=== PATIENT | female | born 1945 | race Caucasian/White ===

== ENCOUNTER → 2017-05-14 | Outpatient (CLI) | payer OTHER ==
[~2017-05-14] VITALS: Ht 152.4 cm; Wt 56.2 kg
[~2017-05-14] MED LIST: CALCIUM 500 +1 EAC5 PO; FISH OIL 1,001000 M2 PO; FOSAMAX 70 MG T70 MG PO; GLUCOSAMINE1000 MG PO; THERA TEARS1 EACH OPHTHALMIC
--- NOTE | ~2017-05-14 | S ---
[facility] Jaya Hawkins [place] [address] SURGICAL PATH RPT PROCEDURE Name: PABLITO SANTIZO Room #: REG [facility] Darlene.#: [id number] Admission: 05/14/17 Date of : 45 Discharge: Report #: [id number] Path Case #: [id number] PATHOLOGY REPORT COLLECTION DATE: 05/14/2017 RECEIVED DATE: 05/14/2017 SUBMITTING PHYS: Dr. Niraj Gan OTHER PHYS: Dr. Robinson Brewster SPECIMEN(S) RECEIVED: A.Proximal transverse colon polyp B.Polyp at 50 cm * * * * * * * * * * * * FINAL DIAGNOSIS: A. "Proximal transverse colon polyp", biopsy: - Tubular adenoma; no high grade dysplasia. B. "Polyp at 50 cm", biopsy: - Tubular adenoma; no high grade dysplasia. (CLW:rosemarie; 05/16/2017) PATHOLOGIST: Yin Mclaughlin M.D. REPORT ELECTRONICALLY SIGNED BY: Yin Mclaughlin M.D. DATE/TIME: 05/16/2017 15:10 * * * * * * * * * * * * GROSS PATHOLOGY: A. Received in formalin labeled "Pablito Santizo, polyp at proximal transverse colon," are 2 segments of chacon soft tissue measuring 1.0 x 0.5 x 0.4 cm in aggregate dimensions and ranging from 0.2 to 0.8 cm in maximum dimension. The specimen is submitted entirely in cassette A1. B. Received in formalin labeled "Do, Pablito N, polyp at 50 cm," is a segment of chacon soft tissue measuring 0.9 x 0.3 x 0.2 cm in maximum dimension. The specimen is submitted entirely in cassette B1. (LARRY; 05/15/2017) CLINICAL HISTORY: Screening, diverticulosis/colon polyps INITIAL CPT CODE(S): A; 64140 B; 81203 [facility] by [facility] at [address] [address] SURGICAL PATH RPT PROCEDURE Name: PABLITO SANTIZO Ugo Room #: REG MARIA D Danielle#: [id number] Admission: 05/14/17 Date of : 45 Discharge: Report #: [id number] Path Case #: [id number] , [place] [address] Technical services performed by [facility] at [address] [place] [address], [facility] [address] [address]. [facility] [address] [place] [address] PHONE: [phone] DIRECTOR: Vance Garcia M.D. * * * END OF REPORT * * *
--- NOTE | ~2017-05-14 | P ---
[facility] [place] [address] PROCEDURE REPORT Name: PABLITO MIRAMONTES Room #: REG [facility]#: [id number] Admission: 05/14/17 Attend Phys: Niraj Gan MD Discharge: Date of : 45 Report #: [id number] THIS REPORT FOR: //name// CC: Niraj STODDARD BOX Robinson Box BRIEF HISTORY: The patient is a 72-year-old woman for average risk screening colonoscopy. PREOPERATIVE DIAGNOSIS: Average risk screening colonoscopy. POSTOPERATIVE DIAGNOSES: 1. Colon polyps. 2. Diverticulosis coli, right colon and left colon. MEDICATIONS: Deep sedation with propofol per anesthesia. SPECIMEN: 1. Polyp from proximal transverse colon. 2. Flat polyp from 50 cm. ESTIMATED BLOOD LOSS: 3 mL. PROCEDURE: Colonoscopy to cecum and terminal ileum with snare polypectomy. FINDINGS: Prior to propofol sedation, procedure of colonoscopy discussed with the patient as well as potential risks and its complications. She indicates she understands and desires to proceed. DESCRIPTION OF PROCEDURE: With the patient in left lateral decubitus position, digital examination was completed which revealed no abnormalities. Subsequently, the Lumaqco video colonoscope was introduced into the rectum and advanced under direct vision to the cecum. It was done with minimal difficulty. The cecum was identified by the ileocecal valve and the appendiceal orifice. At that point, the scope was slowly withdrawn and careful circumferential views obtained. Overall, the prep was good. The mucosa was within normal limits, normal vascular pattern, normal light reflex. As we withdrew the scope, she was found to have a 5 mm sessile polyp in the proximal transverse colon, which was removed by cold snare polypectomy. In addition, she was noted to have a number of moderate diverticula scattered throughout the ascending colon. As we withdrew the scope further, no additional abnormalities were noted until left colon was reached and at 50 cm, a flat 5 mm polyp was seen and removed by cold snare polypectomy and recovered. Scope was further withdrawn and there was moderate sigmoid diverticular disease without endoscopic evidence of diverticulitis. Scope was withdrawn into the rectum and upon retroflexion, no abnormalities were seen. Scope was withdrawn. The patient tolerated the [facility] [address] [place] [address] PROCEDURE REPORT Name: PABLITO MIRAMONTES Ugo [facility] [id number] Admission: 05/14/17 Attend Phys: Niraj Gan MD Discharge: Date of : 45 Report #: [id number] procedure well. CONDITION OF THE PATIENT UPON DISCHARGE: Following procedure, the patient drowsy, arousable, and conversant and will be discharged home when fully ambulatory. INSTRUCTIONS TO THE PATIENT AND FAMILY AT THE TIME OF DISCHARGE: Two ____ polyps identified and removed as described above. We will follow up on the path report and make further recommendations. If one or both of these polyps are adenomas, she should return in 5 years; if neither one is an adenoma, then 10 years would be indicated. Last colonoscopy was 9-1/2 years ago. Withdrawal time from the cecum was 13 minutes and 29 seconds. <ELECTRONICALLY SIGNED> By: Niraj Gan MD 05/14/17 1742 0932 1022 Niraj Gan MD /nt
--- NOTE | ~2017-05-14 | EKG ---
[address] [address] ELECTROCARDIOGRAM REPORT Name: PABLITO MIRAMONTES Ugo Room #: REG 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 No previous ECG available for comparison Electronically Signed On 05-14-2017 11:09:37 CDT by Jose Olmedo [email or web address] <ELECTRONICALLY SIGNED> By: Jose Olmedo MD 05/14/17 1109 0958 0958 Jose Olmedo MD /JAMIE
== END | disposition home or self-care (01) ==
LOC: GI 07:32
DX: Z12.11 Encounter for screening for malignant neoplasm of colon (principal); K63.5 Polyp of colon; K57.30 Diverticulosis of large intestine without perforation or abscess without bleeding; H40.9 Unspecified glaucoma; Z98.41 Cataract extraction status, right eye; Z98.42 Cataract extraction status, left eye
CPT/HCPCS: 62110; 62900

== ENCOUNTER 2017-11-09 21:19 | Inpatient (IN) | payer OTHER ==
[~2017-11-09] VITALS: Ht 152.4 cm; Wt 62.2 kg
--- NOTE | ~2017-11-09 | EKG ---
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
--- NOTE | ~2017-11-09 | P ---
[facility] [place] [address] PROCEDURE REPORT Name: PABLITO MIRAMONTES Ugo Room #: 207-P [facility] IN M.R.#: [id number] Admission: 11/09/17 Attend Phys: Timothy Yadav DO Discharge: 11/11/17 Date of : 45 Report #: [id number] THIS REPORT FOR: //name// CC: Timothy [facility] Robinson Box DATE OF SERVICE: 11/10/2017 PREOPERATIVE DIAGNOSIS: Sick sinus syndrome and sinus arrest. POSTOPERATIVE DIAGNOSIS: Sick sinus syndrome and sinus arrest. PROCEDURE: Pacemaker insertion. HISTORY: The patient is a 72-year-old female who presented with presyncopal and syncopal episodes and was found to have frequent episodes of sinus arrest as well as premature atrial contractions with compensatory pauses from durations of 3-10 seconds. This improved with isoproterenol overnight. She is on no AV marcelo blocking agents. She had an echocardiogram showing EF of 60-65%. She is here for dual-chamber pacemaker implantation. ANESTHESIA: The patient underwent MAC anesthesia with no anesthesia-related complications. DESCRIPTION OF PROCEDURE: The patient underwent informed consent. We discussed the details of the procedure including the risks, which include, but not limited to bleeding, infection, vascular damage, cardiac perforation and pneumothorax. She understood these risks and was willing to proceed. As such, she was brought to the EP laboratory in a fasting and sedated state and prepped and draped in a sterile fashion. She received IV vancomycin and underwent a venogram showing patency of the left axillary vein. Next, I injected lidocaine at the prior incision site. An incision was made. A pocket was created over the prepectoral fascia. Next, access was obtained twice the left axillary vein using the extrathoracic approach with sheaths positioned using the modified Seldinger technique. Next, under fluoroscopy, a lead was positioned in the right ventricular apex with adequate pacing and sensing thresholds. The atrial lead was positioned into the right atrial appendage, but there was poor R-wave, so this was repositioned and the P waves were slightly improved at this site at 1 millivolt. The sheaths were split. I did have issues splitting the atrial sheath and therefore, I had to spend about 10 minutes trying to remove the sheath and I had to cut it with a Archbald scissor. The leads were tested and found to be functioning normally. The sheaths were sutured to the prepectoral fascia using Ethibond suture and then, the device was connected and tested and found to be functioning normally. The device was placed in the pocket and then, the pocket was irrigated with vancomycin and then I closed the pocket in [address] [address] PROCEDURE REPORT Name: PABLITO MIRAMONTES Room #: 207-P [facility] IN M.R.#: [id number] Admission: 11/09/17 Attend Phys: Timothy Yadav DO Discharge: 11/11/17 Date of : 45 Report #: [id number] using 2-0 for the deep layer, 3-0 for the mid layer and 4-0 for the subcuticular. Surgical glue was placed to the outer skin layer. The implanted pacemaker was a Biotronik model #468685, serial #[id number]. This was an MRI compatible device due to her prior need for MRIs. The atrial lead was a Biotronik model #457378, serial #[id number]. The atrial lead demonstrated a P-wave of 1 volt with a pacing impedance of 448 ohms and a pacing threshold of 0.8 volts at 0.4 milliseconds. The RV lead was a Biotronik model #089742, serial #[id number]. This demonstrated R-wave of 4 millivolts, pacing impedance of 604 ohms and a pacing threshold of 0.6 volts at 0.4 milliseconds. The device is programmed to the DDD 60-130 mode. CONCLUSIONS: 1. Successful pacemaker implantation. 2. Satisfactory atrial and right ventricular pacing and sensing thresholds. <ELECTRONICALLY SIGNED> By: Jose Olmedo MD 11/15/17 1141 1404 0519 Jose Olmedo MD /nt
--- NOTE | ~2017-11-09 | 2DMMODE ---
[facility] [address] [place] [address] 2 D/M-MODE ECHOCARDIOGRAM Name: PABLITO N Room #: 207-P [facility] IN [facility]#: [id number] Admission: 11/09/17 Attend Phys: Timothy Yadav, Discharge: Date of : 45 Date of Service: 11/11/17 1247 Report #: [id number] THIS REPORT FOR: //name// APPROVED REPORT Study performed: 11/10/2017 08:49:39 EXAM: Comprehensive 2D, Doppler, and color-flow Echocardiogram Patient Location: Bedside Room #: 237 Status: on-call BSA: 1.48 HR: 83 bpm BP: 122/73 mmHg Rhythm: APC's Other Information Study Quality: Good Indications Chest Pressure Dyspnea Syncope pauses 2D Dimensions LVEF(%): 62.93 (>50%) IVSd: 9.38 (7-11mm) LVOT Diam: 16.00 (18-24mm) LVDd: 40.77 mm PWd: 9.37 (7-11mm) Ascending Ao: 29.98 (22-36mm) LVDs: 27.05 (25-40mm) Aortic Root: 25.51 mm LV Single Plane 4CH: 66.78 % LV Single Plane 2CH: 59.45 % Salcedo's LVEF: 63.12 % Biplane EF: 63.7 % Volumes Left Atrial Volume (Systole) Single Plane 4CH: 36.60 mL Single Plane 2CH: 24.44 mL LA ESV Index: 33.00 mL/m2 Aortic Valve AoV Peak Silverio.: 1.47 m/s AO Peak Gr.: 8.68 mmHg LVOT Max P.24 mmHg LVOT Max V: 1.14 m/s [facility] [place] [address] [place] [address] 2 D/M-MODE ECHOCARDIOGRAM Name: DOPABLITO N Room #: 207-P [facility] IN ..#: [id number] Admission: 11/09/17 Attend Phys: Timothy Yadav, Discharge: Date of : 45 Date of Service: 11/11/17 1247 Report #: [id number] Vmax: 1.51 cm2 Pulmonary Valve PV Peak Silverio.: 1.26 m/s PV Peak Gr.: 6.30 mmHg Pulmonary Vein P Vein S: 0.68 m/s P Vein A: 0.16 m/s P Vein D: 0.58 m/s P Vein A Dur.: 124.6 msec P Vein S/D Ratio: 1.17 Tricuspid Valve TR Peak Silverio.: 2.79 m/s RAP Estimate: 7.00 mmHg TR Peak Gr.: 31.18 mmHg PA Pressure: 38.00 mmHg Left Ventricle The left ventricle is normal size. There is normal LV segmental wall motion. There is normal left ventricular wall thickness. Left ventricular systolic function is normal. The left ventricular ejection fraction is within the normal range. LVEF is 60-65%. This study is not technically sufficient to allow evaluation of the LV diastolic function due to irregular ryhthm. Right Ventricle The right ventricle is normal size. The right ventricular systolic function is normal. Atria The left atrium size is normal. The right atrium size is normal. Aortic Valve The aortic valve is normal in structure. No aortic regurgitation is present. There is no aortic valvular stenosis. Mitral Valve The mitral valve is normal in structure. Trace mitral regurgitation. No evidence of mitral valve stenosis. Tricuspid Valve The tricuspid valve is normal in structure. Trace tricuspid regurgitation. Pulmonary artery pressure is 38 mmHg. Pulmonic Valve The pulmonary valve is normal in structure. There is no pulmonic valvular regurgitation. [address] [address] 2 D/M-MODE ECHOCARDIOGRAM Name: PABLITO MIRAMONTES Ugo Room #: 207-P [facility] IN ..#: [id number] Admission: 11/09/17 Attend Phys: Timothy Yadav, Discharge: Date of : 45 Date of Service: 11/11/17 1247 Report #: [id number] Great Vessels The aortic root is normal in size. IVC is normal in size and collapses with >50% inspiration. Pericardium There is no pericardial effusion. <Conclusion> The left ventricle is normal size. Left ventricular systolic function is normal. The left ventricular ejection fraction is within the normal range. LVEF is 60-65%. The aortic valve is normal in structure. The mitral valve is normal in structure. The tricuspid valve is normal in structure. <ELECTRONICALLY SIGNED> By: Jose Olmedo MD 11/11/17 1247 1247 1247 Jose Olmedo MD /INF
--- NOTE | ~2017-11-09 | EKG ---
[address] [place] [address] ELECTROCARDIOGRAM REPORT Name: PABLITO MIRAMONTES Room #: 237-P ADM IN M.R.#: [id number] Admission: 11/09/17 Attend Phys: Timothy Yadav DO Discharge: Date of : 45 Report #: [id number] THIS REPORT FOR: //name// [facility] Test Date: 2017-11-10 Test Time: 00:00:32 Pat Name: PABLITO MIRAMONTES Department: Room: 237 Gender: F Billing Assistant: derrell : 1945 Requested By: Jose Olmedo Order Number: [id number] MD: Jose Olmedo Measurements Intervals [place] Rate: 69 P: 71 [place]: 182 QRS: 9 QRSD: 75 T: 18 QT: 429 QTc: 460 Interpretive Statements Sinus rhythm with sinus arrest. Anteroseptal infarct, age indeterminate Compared to ECG 05/14/2017 09:58:45 Myocardial infarct finding now present Sinus rhythm no longer present Electronically Signed On 11-10-2017 12:13:08 CDT by Jose Olmedo [email or web address] <ELECTRONICALLY SIGNED> By: Jose Olmedo MD 11/10/17 1213 0000 0000 Jose Olmedo MD /EPI
[2017-11-09 21:22] VITALS: BP 140/109
[2017-11-09 21:48] LABS: ABSOLUTE NEUTROPHILS 2.6 thou/uL (1.4-8.2); BASOPHILS 0.5 % (0.0-2.0); EOSINOPHILS 1.3 % (0.0-3.0); HEMATOCRIT 41.9 % (37.0-47.0); HEMOGLOBIN 14.2 gm/dL (12.0-15.0); LYMPHOCYTES 41.2 % (24.0-44.0); MCH 30.7 pg (26.0-34.0); MCHC 33.9 g/dL (28.0-37.0); MCV 90.4 fL (80.0-100.0); MONOCYTES 9.6 % (1.0-8.0); PLATELET COUNT 227 thou/uL (150-400); POLYS 47.4 % (36.0-66.0); RBC 4.64 mil/uL (4.20-5.00); RDW 13.8 % (10.5-14.5); WBC 5.5 thou/uL (4.0-11.0)
[2017-11-09 21:56] LABS: ANION GAP 8 mmol/L (7-16); BUN 23 mg/dL (7-18); CALCIUM 9.3 mg/dL (8.5-10.1); CHLORIDE 104 mmol/L (98-107); CO2 29 mmol/L (21-32); GLUCOSE 130 mg/dL (74-106); POTASSIUM 4.2 mmol/L (3.5-5.1); SODIUM 141 mmol/L (136-145)
[2017-11-09 22:04] LABS: ALBUMIN 3.8 g/dL (3.4-5.0); SGOT 27 U/L (15-37); SGPT 30 U/L (30-65); TOTAL BILIRUBIN 0.4 mg/dL (<0.1-1.0); TOTAL PROTEIN 7.9 g/dL (6.4-8.2); TROPONIN-I < 0.04 ng/mL (<0.06)
[2017-11-09 23:30] VITALS: BP 150/76
[2017-11-09 23:51] VITALS: BP 145/92
[2017-11-10] VITALS (46 sets, daily range): BP systolic 99–174; BP diastolic 49–136
[2017-11-10 01:09] LABS: URINE BILIRUBIN NEGATIVE (Negative); URINE BLOOD NEGATIVE (Negative); URINE CLARITY CLEAR; URINE COLOR YELLOW; URINE GLUCOSE-RANDOM* NEGATIVE (Negative); URINE KETONES NEGATIVE (Negative); URINE LEUKOCYTES NEGATIVE (Negative); URINE NITRITE NEGATIVE (Negative); URINE PROTEIN (DIPSTICK) NEGATIVE (Negative); URINE SPECIFIC GRAVITY <= 1.005 (1.005-1.035); URINE UROBILINOGEN 0.2 E.U./dl (0.2-1.0)
[2017-11-10 03:26] LABS: ANION GAP 12 mmol/L (7-16); BUN 21 mg/dL (7-18); CALCIUM 8.8 mg/dL (8.5-10.1); CHLORIDE 106 mmol/L (98-107); CO2 26 mmol/L (21-32); CREATININE 0.8 mg/dL (0.6-1.0); GLUCOSE 129 mg/dL (74-106); POTASSIUM 3.5 mmol/L (3.5-5.1); PROTIME 9.6 Seconds (9.3-11.4); SODIUM 144 mmol/L (136-145); TROPONIN-I < 0.04 ng/mL (<0.06)
[2017-11-11 00:26] VITALS: BP 130/69
[2017-11-11 03:09] LABS: ABSOLUTE NEUTROPHILS 4.7 thou/uL (1.4-8.2); BASOPHILS 0.6 % (0.0-2.0); EOSINOPHILS 1.1 % (0.0-3.0); HEMATOCRIT 40.8 % (37.0-47.0); HEMOGLOBIN 13.7 gm/dL (12.0-15.0); LYMPHOCYTES 20.3 % (24.0-44.0); MCH 30.5 pg (26.0-34.0); MCHC 33.5 g/dL (28.0-37.0); MCV 91.1 fL (80.0-100.0); MONOCYTES 7.3 % (1.0-8.0); PLATELET COUNT 216 thou/uL (150-400); POLYS 70.7 % (36.0-66.0); RBC 4.48 mil/uL (4.20-5.00); RDW 13.4 % (10.5-14.5); WBC 6.7 thou/uL (4.0-11.0)
[2017-11-11 03:28] LABS: CALCIUM 8.1 mg/dL (8.5-10.1); CREATININE 0.7 mg/dL (0.6-1.0); POTASSIUM 3.8 mmol/L (3.5-5.1)
[2017-11-11 04:52] VITALS: BP 110/72
[2017-11-11] MEDS ORDERED: HYDROCODON-ACE1 EAC7 PO (08:00)
[2017-11-11] MEDS ORDERED: ASPIR 8181 MG PO (08:00)
[2017-11-11 08:10] VITALS: BP 142/72
[2017-11-11 11:04] VITALS: BP 110/72
[2017-11-11 12:10] VITALS: BP 110/72
== END 2017-11-11 16:23 | disposition home or self-care (01) | DRG 242 ==
LOC: ER 21:19 → EROBS 22:43 → ICU 23:31 → 2N 11-10 12:21
PROVIDERS: Family Medicine; Nurse Practitioner Family
PROC: 0JH606Z Insertion of Pacemaker, Dual Chamber into Chest Subcutaneous Tissue and Fascia, Open Approach (ICD-10-PCS; principal; 2017-11-10)
PROC: 02H63JZ Insertion of Pacemaker Lead into Right Atrium, Percutaneous Approach (ICD-10-PCS; principal; 2017-11-10)
PROC: 02HK3JZ Insertion of Pacemaker Lead into Right Ventricle, Percutaneous Approach (ICD-10-PCS; principal; 2017-11-10)
DX: I49.5 Sick sinus syndrome (principal); E43 Unspecified severe protein-calorie malnutrition; I45.5 Other specified heart block; H40.9 Unspecified glaucoma; Z98.42 Cataract extraction status, left eye; Z98.41 Cataract extraction status, right eye; Z79.82 Long term (current) use of aspirin; Z79.899 Other long term (current) drug therapy
CPT/HCPCS: 10078; 10797; 62110; 62900; 70005

== ENCOUNTER → 2020-02-17 | Outpatient (CLI) | payer OTHER ==
[~2020-02-17] MED LIST changes: +ASPIR 8181 MG PO; +HYDROCODON-ACE1 EAC7 PO
== END ==
LOC: SJCVC 11:20
PROVIDERS: ATTEND Internal Medicine Cardiovascular Disease
DX: Z45.018 Encounter for adjustment and management of other part of cardiac pacemaker (principal); R94.31 Abnormal electrocardiogram [ECG] [EKG]; I49.5 Sick sinus syndrome; I45.5 Other specified heart block; I10 Essential (primary) hypertension; Z79.82 Long term (current) use of aspirin; Z79.899 Other long term (current) drug therapy

== ENCOUNTER → 2021-03-17 | Outpatient (CLI) | payer OTHER | LOC: SJCVCIMAG 02-15 08:38 | PROVIDERS: ATTEND Internal Medicine Cardiovascular Disease | DX: I07.1 Rheumatic tricuspid insufficiency (principal); I10 Essential (primary) hypertension; I49.5 Sick sinus syndrome ==